=== PATIENT | male | born 2000 | race American Indian/Alaskan Native ===

== ENCOUNTER 2023-06-06 09:57 | Emergency (ER) | payer OTHER ==
[~2023-06-06] VITALS: Ht 177.8 cm; Wt 92.2 kg
[2023-06-06] MEDS ORDERED: nyquil (10:14)
[2023-06-06 11:57] LABS: RSV AMPLIFICATION NEGATIVE (NEGATIVE)
[2023-06-06] MEDS ORDERED: ONDA4TAB6 PO (12:41)
[2023-06-06 12:50] VITALS: BP 116/78; TEMP 98.9; O2SAT 98
== END 2023-06-06 12:51 | disposition home or self-care (01) ==
LOC: M ED 09:57
DX: U07.1 COVID-19 (principal); F17.290 Nicotine dependence, other tobacco product, uncomplicated; Z91.013 Allergy to seafood